=== PATIENT | female | born 1960 | race Caucasian/White ===

== ENCOUNTER → 2020-11-10 08:41 | Outpatient (BNVA) | payer BC, SELFPAY | PROVIDERS: PCP Internal Medicine; Visit Provider Internal Medicine Gastroenterology ==

== ENCOUNTER 2020-12-15 08:49 | Outpatient (REF) | payer BC, SELFPAY ==
--- NOTE | ~2020-12-15 | XR_ITS ---
EXAMINATION: XR LUMBOSACRAL SPINE CLINICAL INFORMATION: Radiculopathy COMPARISON: 11/02/2006 TECHNIQUE: Three views of the lumbosacral spine. FINDINGS: No fracture or subluxation. Vertebral body height and alignment is maintained. Mild disc space narrowing of L4-L5. Mild facet arthropathy of the lower lumbar spine. The sacroiliac joints are symmetric. The sacrum appears intact. The bowel gas pattern is unremarkable. XR/XR lumbar spine 2-3V IMPRESSION: Mild degenerative changes at the lower lumbar spine. These have progressed since the 2006 study.
--- NOTE | ~2020-12-15 | US_ITS ---
EXAMINATION: US EXTRACRANIAL CAROTID DUPLEX, BILATERAL CLINICAL INFORMATION: TIA COMPARISON: None TECHNIQUE: Real-time ultrasound and Doppler techniques (integrating B-mode 2-D vascular images, Doppler spectral analysis and color-flow Doppler imaging) were utilized to interrogate the extracranial carotid arteries, the vertebral arteries and proximal subclavian arteries bilaterally. The degree of stenosis is determined by criteria similar to NASCET. FINDINGS: Right Side: 1. There is no atherosclerotic plaque seen in the bifurcation/proximal ICA region. 2. The common carotid artery PSV proximally is 121 cm/s and distally 126 cm/s. 3. The proximal internal carotid artery velocities are 107 cm/s systolic and 41 cm/s diastolic. 4. The proximal external carotid artery PSV is 120 cm/s. 5. The vertebral artery shows antegrade flow. 6. The subclavian artery waveforms are normal. Left Side: 1. There is no atherosclerotic plaque seen in the bifurcation/proximal ICA region. 2. The common carotid artery PSV proximally is 123 cm/s and distally 124 cm/s. 3. The proximal internal carotid artery velocities are 1:30 cm/s systolic and 39 cm/s diastolic. 4. The proximal external carotid artery PSV is 131 cm/s. 5. The vertebral artery shows antegrade flow. 6. The subclavian artery waveforms are normal. US/US carotid duplex BI IMPRESSION: 1. RIGHT: Normal right internal carotid artery without atherosclerotic plaque or hemodynamically significant stenosis. 2. LEFT: Normal left internal carotid artery without atherosclerotic plaque or hemodynamically significant stenosis. Although left ICA velocity is minimally elevated, no plaque is seen and the mild elevation is thought to be due to tortuosity.
[2020-12-15 09:42] LABS: MANUAL DIFF FLAG NO
[2020-12-15 09:48] LABS: Basophils Percent Auto 0.6 % (0-2); Eosinophils Absolute Auto 0.1 X10*3/uL (0.0-0.4); Hematocrit 40.4 % (37-47); Hemoglobin 13.4 g/dl (12.0-16.0); Imm Gran Abs Auto 0.02 X10*3/uL (0.00-0.03); Imm Gran Pct Auto 0.3 % (0.0-0.4); Lymphocytes Absolute Auto 3.2 X10*3/uL (1.2-4.9); Lymphocytes Percent Auto 46.3 % (20-40); Mean Corpuscular HGB Conc 33.2 g/dl (31.0-35.0); Mean Corpuscular Volume 90.4 fL (80-98); Mean Platelet Volume 8.6 fL (9.4-12.3); Monocytes Absolute Auto 0.4 X10*3/uL (0.1-1.2); Neutrophils Absolute Auto 3.1 X10*3/uL (2.0-8.3); Neutrophils Percent Auto 45.8 % (45-73); Platelet Count 340 X10*3/uL (160-400); Red Blood Count 4.47 X10*6/uL (4.20-5.50); Red Cell Distribution Width 12.1 % (11.0-16.0); White Blood Count 6.9 X10*3/uL (4.8-10.8)
[2020-12-15 10:07] LABS: Alanine Aminotransferase 17 U/L (0-31); Albumin Level 4.7 g/dL (3.5-5.0); Alkaline Phosphatase 77 U/L (39-117); Anion Gap 12 (12-20); Aspartate Amino Transferase 16 U/L (5-31); Bilirubin Total 0.5 mg/dL (0.0-1.0); Blood Urea Nitrogen 14 mg/dL (9-16); Calcium 9.6 mg/dL (8.4-10.2); Carbon Dioxide 29 mmol/L (22-29); Chloride 105 mmol/L (96-108); Cholesterol 226 mg/dL; Estimated Glomerular Filt Rate > 60; Glucose Random 101 mg/dL (60-115); HDL Cholesterol 49 mg/dL; LDL Cholesterol Calculated 141 mg/dl; Potassium 4.3 mmol/L (3.3-5.1); Sodium 142 mmol/L (135-145); Total Protein 7.3 g/dL (6.5-8.0); Triglycerides 180 mg/dL
[2020-12-15 10:32] LABS: Free T4 (Free Thyroxine) 0.91 ng/dL (0.71-1.85); Thyroid Stimulating Hormone 1.32 uIU/mL (0.32-4.0); Vitamin D 25-OH Total 42.9 ng/mL (>30)
[2020-12-15 10:40] LABS: Glucose Urine UA NEG (NEG); Leukocyte Esterase Urine NEG (NEG); Nitrite Urine NEG (NEG); PH 5.5 (5.0-8.0); Specific Gravity - Urine >= 1.030 (1.005-1.025); Urine Blood TRACE (NEG); Urine Ketones NEG (NEG); Urine Protein NEG (NEG-TRACE)
[2020-12-15 10:44] LABS: Appearance Urine HAZY; Color Urine YELLOW
[2020-12-15 10:49] LABS: Mucus Urine 2+ /LPF; RBC Urine 0-2 /HPF (0); Squamous Epithelial Cell Urine 1+ /LPF; WBC Urine 0-2 /HPF (0-4)
[2020-12-15 10:59] LABS: Folate 10.5 ng/mL (> or = 4.0); Vitamin B12 408 pg/mL (200-900)
== END 2020-12-15 08:50 | disposition home or self-care (01) ==
LOC: HO.US 08:49
PROVIDERS: PCP Internal Medicine; Visit Provider Internal Medicine
DX: G45.9 Transient cerebral ischemic attack, unspecified (principal); M54.10 Radiculopathy, site unspecified; E78.1 Pure hyperglyceridemia; E78.00 Pure hypercholesterolemia, unspecified
CPT/HCPCS: 36415; 72100; 80053; 80061; 81001; 82306; 82607; 82746; 84439; 84443; 85025; 93880

== ENCOUNTER 2020-12-28 10:17 | Day surgery (SDC) | payer BC, SELFPAY ==
[2020-12-22 09:45] VITALS: BMI 24.8
--- NOTE | 2020-12-27 09:45 | P.CONAN_ITS ---
Documented by User: Elisa Godinez 12/27/20 09:46 HPI - Anesthesia Eval Consult details Narrative: 60yo F for Upper Endoscopy and Colonoscopy [facility] Active Problems Active Problems: All Active Problems (Updated 12/22/20 @ 09:48 by Keshia Acuna) TIA (transient ischemic attack) (Acute) Radicular low back pain (Acute) COVID-19 virus infection (Acute) Hypertriglyceridemia (Acute) GERD (gastroesophageal reflux disease) (Acute) Past Medical History Medical History Anxiety and depression Cervical dysplasia Chondromalacia patellae of right knee GERD (gastroesophageal reflux disease) History of postoperative nausea and vomiting Hypertriglyceridemia Personal history of COVID-19 Radicular low back pain TIA (transient ischemic attack) Family History Family History Father Heart attack CVD (cardiovascular disease) Mother Breast cancer CVD (cardiovascular disease) Esophageal cancer Maternal Grandfather Lung cancer Colon cancer Maternal Aunt CVD (cardiovascular disease) CAD (coronary artery disease) Brother Bladder cancer CAD (coronary artery disease) Heart attack Maternal Grandmother CVA (cerebral vascular accident) Brother Heart attack Surgical History Surgical History H/O arthroscopy of knee H/O colonoscopy History of appendectomy History of esophagogastroduodenoscopy (EGD) History of repair of rotator cuff Social History Social History Household Members: Spouse Are you a primary care management coordinator to a significant other at home: No Do you presently have visiting nurse or other home services: No Alcohol intake: current Alcohol intake frequency: a few times a month Smoking Status: Former smoker Years Smoked: 1989 stopped Smoked in Last 30 Days: No Smoking Quit Date: 1990 Use of substances other than those prescribed or required for medical reasons: No Have you been hit, kicked, punched, or otherwise hurt by someone within the past year? If so, by whom?: No Advance Directives Information Provided: No Recently lost weight without trying: No Meds Allergies Allergy/AdvReac Type Severity Reaction Status Date / Time ibuprofen Allergy Intermediate esophageal Verified 12/22/20 09:50 spasm Tylox Allergy Intermediate Rash Verified 12/22/20 09:50 Home Medications Medication Instructions Recorded Confirmed Last Taken Type cholecalciferol (vitamin D3) 50 50 mcg PO DAILY 08/25/20 12/22/20 Unknown History mcg (2,000 unit) capsule omeprazole 20 mg capsule,delayed 20 mg PO DAILY 08/25/20 12/22/20 Unknown History release Exam Exam Date and Time: December 27, 2020 0945 Height,Weight and Vital Signs: Height 5 ft 2 in Weight 61.689 kg Narrative Narrative: Laboratory Tests 12/15/20 12/15/20 09:27 09:27 WBC 6.9 Hgb 13.4 Hct 40.4 Plt Count 340 Sodium 142 Potassium 4.3 Chloride 105 Carbon Dioxide 29 BUN 14 Creatinine 0.83 Assessment and Plan Assessment Anesthesia Assessment: Chart Reviewed Documented by User: Coleman Carranza 12/28/20 11:34 [facility] Past Medical History Medical History Anxiety and depression Cervical dysplasia Chondromalacia patellae of right knee GERD (gastroesophageal reflux disease) History of postoperative nausea and vomiting Hypertriglyceridemia Personal history of COVID-19 Radicular low back pain TIA (transient ischemic attack) Family History Family History Father Heart attack CVD (cardiovascular disease) Mother Breast cancer CVD (cardiovascular disease) Esophageal cancer Maternal Grandfather Lung cancer Colon cancer Maternal Aunt CVD (cardiovascular disease) CAD (coronary artery disease) Brother Bladder cancer CAD (coronary artery disease) Heart attack Maternal Grandmother CVA (cerebral vascular accident) Brother Heart attack Surgical History Surgical History H/O arthroscopy of knee H/O colonoscopy History of appendectomy History of esophagogastroduodenoscopy (EGD) History of repair of rotator cuff Social History Social History Household Members: Spouse Are you a primary care management coordinator to a significant other at home: No Do you presently have visiting nurse or other home services: No Alcohol intake: current Alcohol intake frequency: a few times a month Smoking Status: Former smoker Years Smoked: 1989 stopped Smoked in Last 30 Days: No Smoking Quit Date: 1990 Use of substances other than those prescribed or required for medical reasons: No Have you been hit, kicked, punched, or otherwise hurt by someone within the past year? If so, by whom?: No Advance Directives Information Provided: No Recently lost weight without trying: No Meds Allergies Allergy/AdvReac Type Severity Reaction Status Date / Time ibuprofen Allergy Intermediate esophageal Verified 12/22/20 09:50 spasm Tylox Allergy Intermediate Rash Verified 12/22/20 09:50 Home Medications Medication Instructions Recorded Confirmed Last Taken Type cholecalciferol (vitamin D3) 50 50 mcg PO DAILY 08/25/20 12/22/20 Unknown History mcg (2,000 unit) capsule omeprazole 20 mg capsule,delayed 20 mg PO DAILY 08/25/20 12/22/20 Unknown History release Exam Airway Mallampati Class: II TM Dist: >3cm Neck ROM: Full Loose/Missing/Broken Teeth: No Heart: [id number] Lungs: cta b/l Assessment and Plan Assessment Anesthesia Assessment: Anesthesia Plan Discussed, PAT Visit and Chart Reviewed Final Anesthetic Review NPO: Yes ASA Class: II Final Preanesthetic Review: No Changes in Pt Med Stat, Meds/Allgs Chart Reviewed, Consent Obtained/Reviewed and Anes Risks/Benef Reviewed Patient Risk: Low Procedure Risk: Low Assessment/Block/Sedation in SS: Assess/Block/Sedation-SS Anesthetic Plan Anesthetic Plan: MAC: and Agree w/ Assess. and Plan Disposition: Standard PACU
[2020-12-28 10:57] VITALS: BP 161/87; PULSE 94; RESP 16; TEMP 37.1; O2SAT 97
[2020-12-28] MEDS: Lactated Ringers 1,000 ML 100 ML IVCONT (11:04)
--- NOTE | 2020-12-28 11:41 | MHC.SHP ---
Pre-Procedural Eval Section B Chief Complaint: GERD, Screening Details of Present Illness: Chronic GERD, Fam hx esophageal cancer, Colon cancer screening. Relevant Social History: None Present Medications: see Short Stay Collaborative assessment Medical History: Significant History (GERD/ANX/DEP) Allergies: Allergies Allergy/AdvReac Type Severity Reaction Status Date / Time ibuprofen Allergy Intermediate esophageal Verified 12/22/20 09:50 spasm Tylox Allergy Intermediate Rash Verified 12/22/20 09:50 Review of Systems Sugical H&P ROS: Negative: Constitution, Cardiovascular, Respiratory and Gastrointestinal Exam Surgical H&P Exam: Normal: HEENT, Normal: Heart, Normal: Lungs, Normal: Extremities, Normal: Abdomen and Normal: Skin Plan Diagnosis/Plan: Unchanged I have reviewed the history and physical and performed a pertinent physical examination on my patient. No changes have occurred unless specified.YES
--- NOTE | 2020-12-28 12:16 | PM.OP ---
Brief Operative Note Date of Service: 12/28/20 Pre-op diagnosis: CHRONIC GERD, COLON CANCER SCREENING Post-op diagnosis: other (SUPERFICIAL GASTRITIS, HIATAL HERNIA, ? CANDIDIAL ESOPHAGITIS; COLON CANCER SCREENING) Procedure: EGD W/BX; COLO-NO BX Implants: NONE Surgeon: Edwige Hollis MD Anesthesia: MAC (CUFF,CYBERATHLETE; MD CLARENCE) Estimated blood loss (mL): 5 Pathology: other (GASTRIC , ESOPHAGEAL) Condition: stable Disposition: PACU
[2020-12-28 12:17] VITALS: BP 118/70; PULSE 89; RESP 22; TEMP 36.4; O2SAT 98
[2020-12-28 12:32] VITALS: BP 139/84; PULSE 88; RESP 15; O2SAT 96
[2020-12-28 12:47] VITALS: BP 133/69; PULSE 77; RESP 18; O2SAT 96
[2020-12-28 12:59] VITALS: TEMP 36.7
--- NOTE | 2020-12-28 17:04 | P.OP_ITS ---
Operative Note Operative Note Date of Service: 12/28/20 Narrative: DOS: 12/28/20 Pre-op diagnosis: CHRONIC GERD, COLON CANCER SCREENING Post-op diagnosis: other (SUPERFICIAL GASTRITIS, HIATAL HERNIA, ? CANDIDIAL ESOPHAGITIS; COLON CANCER SCREENING) Procedure: EGD W/BX; COLO-NO BX Implants: NONE Surgeon: Edwige Hollis MD Anesthesia: MAC (CUFF,SEPTIC TANK SERVICER; MD CLARENCE) FINDINGS: EGD: Video gastroscope was introduced without difficulty. Advanced through the posterior pharynx and easily entered the esophagus. There was scattered white plaquing noted in the cervical and mid esophagus. (Bx were taken to see if there was any suggestion of Candidial induced inflamation..) Small Hiatal hernia was identified. Once in the stomach there was some bilious tinge to the gastric aspirate. Minimal erythema was noted in the antrum. Random gastric bx were obtained. Duodenal bulb and Duodenum had normal appearing villi. Scope was withdrawn without difficulty. COLONOSCOPY: FARIDA--No mass, Sphincter tone was adequate. Adult slim colonoscope was introduced with no difficulty and advanced into the rectosigmoid and sigmoid colon. Scattered Diverticulosis was noted. Continued advancement of scope through descending, transverse and ascending colon on into the cecal cap. Appendiceal orifice was seen as was the ileocecal valve. No mucosal abnormalities were seen. PREP: GOOD Slow withdrawal of scope, good rotational views--no lesions were seen. ARV was clear. Estimated blood loss (mL): 5 Pathology: other (GASTRIC , ESOPHAGEAL) Condition: stable Disposition: PACU PLAN: Prior to this colon was 2008. She does have family hx of Colon cancer in second degree relative. Repeat screening to be considered in 7 years. Patient had no identifiable risk factors for esophageal cancer on her EGD.
== END 2020-12-28 14:18 | disposition home or self-care (01) ==
PROVIDERS: PCP Internal Medicine; Visit Provider Internal Medicine Gastroenterology
PROC: (CPT 45378; principal; 2020-12-28 11:30)
DX: Z12.11 Encounter for screening for malignant neoplasm of colon (principal); K57.30 Diverticulosis of large intestine without perforation or abscess without bleeding; K29.30 Chronic superficial gastritis without bleeding; K21.00 Gastro-esophageal reflux disease with esophagitis, without bleeding; B37.81 Candidal esophagitis; K44.9 Diaphragmatic hernia without obstruction or gangrene; Z80.0 Family history of malignant neoplasm of digestive organs; Z79.899 Other long term (current) drug therapy; Z88.8 Allergy status to other drugs, medicaments and biological substances; Z87.891 Personal history of nicotine dependence; Z86.16 Personal history of COVID-19
CPT/HCPCS: 45378; 43239; 88305; 88342

== ENCOUNTER → 2021-01-26 11:33 | Outpatient (BNVA) | payer BC, SELFPAY | PROVIDERS: PCP Internal Medicine; Visit Provider Internal Medicine Gastroenterology ==